=== PATIENT | female | born 1965 | race African-American/Black ===

== ENCOUNTER 2016-05-25 22:03 | Emergency (ER) | payer OTHER ==
[~2016-05-25] VITALS: Ht 152.4 cm; Wt 86.6 kg
--- NOTE | ~2016-05-25 | EKG ---
[address] [address] ELECTROCARDIOGRAM REPORT Name: CHRISTOPHER GRAHAM Room #: DEP [facility]#: [id number] Admission: 05/25/16 Attend Phys: Discharge: 05/25/16 Date of : 69 Report #: [id number] THIS REPORT FOR: //name// [facility] ED Test Date: 2016-05-25 Test Time: 22:27:29 Pat Name: CHRISTOPHER GRAHAM Department: Room: Gender: F Executive Chef: cweitahira : 1965 Requested By: Laura Peck Order Number: [id number] MD: True Best Measurements Intervals [place] Rate: 87 P: 60 IN: 171 QRS: 19 QRSD: 96 T: 17 QT: 342 QTc: 412 Interpretive Statements Sinus rhythm No significant abnormality No previous ECG available for comparison Electronically Signed On 05-27-2016 7:43:00 CDT by True Best [email or web address] <ELECTRONICALLY SIGNED> By: True Best MD, [facility] 05/27/16 0743 [id number] True Best MD, FACC /EPI
[~2016-05-25 22:03] MED LIST: ALAVERT10 MG PO; CYMBALTA60 MG PO; DARVOCET-N 1001 EACH PO; DOXYCYCLINE 10100 M1 PO; FLEXERIL PO; HYDROCHLOROTH12.5 MG PO; IBUPROFEN 800800 MG PO; NAPROSYN500 MG PO; NEXIUM; NEXIUM 40 MG CA40 M1 PO; NEXIUM40 MG PO; NORCO 5-325 TA1 EACH PO; PROTONIX40 MG PO; QVAR8.7 G1 IH; SOMA250 MG PO; SYMBICORT; ULTRAM 50MG TAB50 MG PO; VITAMIN D1000 UNI1 PO
[2016-05-25] MEDS ORDERED: LISINOPRIL5 MG PO (22:20)
[2016-05-25] MEDS ORDERED: IRON325 PO (22:21)
[2016-05-25] MEDS ORDERED: VENTOLIN HFA 1818 GM INH (22:21)
[2016-05-25] MEDS ORDERED: CYCLOBENZAPRINE5 MG PO (22:21)
[2016-05-25] MEDS ORDERED: PULMICORT FLE180 MCG IH (22:22)
[2016-05-25] MEDS ORDERED: FLONASE 0.05%50 MCG NASAL (22:22)
[2016-05-25 22:36] LABS: ABSOLUTE NEUTROPHILS 4.2 thou/uL (1.4-8.2); BASOPHILS 1.1 % (0.0-2.0); HEMATOCRIT 36.6 % (37.0-47.0); HEMOGLOBIN 11.8 gm/dL (12.0-15.0); LYMPHOCYTES 45.1 % (24.0-44.0); MCH 23.9 pg (26.0-34.0); MCHC 32.4 g/dL (28.0-37.0); MCV 73.9 fL (80.0-100.0); MONOCYTES 8.3 % (1.0-8.0); PLATELET COUNT 346 thou/uL (150-400); POLYS 42.5 % (36.0-66.0); RBC 4.95 mil/uL (4.20-5.00); RDW 15.6 % (10.5-14.5)
[2016-05-25 22:39] LABS: MANUAL DIFF NO
[2016-05-25 22:45] LABS: ANION GAP 9 mmol/L (7-16); BUN 13 mg/dL (7-18); CALCIUM 8.9 mg/dL (8.5-10.1); CHLORIDE 100 mmol/L (98-107); CO2 27 mmol/L (21-32); CREATININE 0.8 mg/dL (0.6-1.0); GLUCOSE 100 mg/dL (74-106); POTASSIUM 3.8 mmol/L (3.5-5.1); SODIUM 136 mmol/L (136-145)
[2016-05-25 22:53] LABS: TROPONIN-I < 0.04 ng/mL (<0.04-0.07)
[2016-05-25] MEDS ORDERED: PROAIR HFA8.5 GM INH (22:59)
[2016-05-25 23:20] VITALS: BP 127/83
== END 2016-05-25 23:30 | disposition home or self-care (01) ==
LOC: ER 22:03
PROVIDERS: Emergency Medicine
DX: R06.00 Dyspnea, unspecified (principal); T78.49XA Other allergy, initial encounter; R07.89 Other chest pain; I10 Essential (primary) hypertension; K21.9 Gastro-esophageal reflux disease without esophagitis; J45.909 Unspecified asthma, uncomplicated; X58.XXXA Exposure to other specified factors, initial encounter